=== PATIENT | female | born 1965 | race Caucasian/White ===

== ENCOUNTER → 2016-06-29 | Outpatient (CLI) | payer OTHER ==
[~2016-06-29] MED LIST: LOSARTAN POTAS100 MG PO; ZOLOFT100 MG PO
== END | disposition home or self-care (01) ==
LOC: CDC 14:21
DX: I44.0 Atrioventricular block, first degree (principal); J35.01 Chronic tonsillitis; J34.3 Hypertrophy of nasal turbinates
CPT/HCPCS: 93000

== ENCOUNTER 2016-07-06 06:58 | Day surgery (SDC) | payer OTHER ==
[~2016-07-06] VITALS: Ht 172.7 cm; Wt 108.9 kg
[2016-07-06 07:44] VITALS: BP 155/76
[2016-07-06 11:05] VITALS: BP 117/60
[2016-07-06 12:27] VITALS: BP 133/71
== END 2016-07-06 11:25 | disposition home or self-care (01) ==
LOC: SDC 06:58
PROC: 0CTPXZZ Resection of Tonsils, External Approach (ICD-10-PCS; principal; 2016-07-06)
DX: J35.01 Chronic tonsillitis (principal); I10 Essential (primary) hypertension; G47.33 Obstructive sleep apnea (adult) (pediatric); Z87.891 Personal history of nicotine dependence; Z82.49 Family history of ischemic heart disease and other diseases of the circulatory system; Z82.3 Family history of stroke; J44.9 Chronic obstructive pulmonary disease, unspecified; R94.31 Abnormal electrocardiogram [ECG] [EKG]
CPT/HCPCS: 88304; J0131; J0330; J1100; J2250; J2405; J3010